=== PATIENT | female | born 1950 | race Caucasian/White ===

== ENCOUNTER → 2023-05-06 13:56 | Outpatient (REF) | payer OTHER, SELFPAY | LOC: HWRAD 13:56 | PROVIDERS: ATTENDING PHYSICIAN Obstetrics & Gynecology Gynecology; FAMILY PHYSICIAN Family Medicine | DX: Z12.31 Encounter for screening mammogram for malignant neoplasm of breast (principal); M85.89 Other specified disorders of bone density and structure, multiple sites | CPT/HCPCS: 77063; 77067; 77080 ==

== ENCOUNTER → 2024-05-30 13:14 | Outpatient (REF) | payer OTHER, SELFPAY | LOC: HWWDC 13:14 | PROVIDERS: ATTENDING PHYSICIAN Family Medicine; REFERRING PHYSICIAN Obstetrics & Gynecology Gynecology | DX: Z12.31 Encounter for screening mammogram for malignant neoplasm of breast (principal) | CPT/HCPCS: 77063; 77067 ==